=== PATIENT | male | born 1945 | race Two or more races ===

== ENCOUNTER 2018-10-13 08:07 | Outpatient (CLI) | payer OTHER | END 2018-10-13 08:20 | disposition home or self-care (01) | LOC: OFIC 805 08:07 | DX: J31.2 Chronic pharyngitis (principal); R49.0 Dysphonia; H61.23 Impacted cerumen, bilateral ==

== ENCOUNTER 2021-01-15 10:19 | Inpatient (IN) | payer OTHER ==
[~2021-01-15] VITALS: Ht 167.6 cm; Wt 86.2 kg
[2021-01-15] MEDS ORDERED: DIOVAN160 M1 PO (10:34)
--- NOTE | 2021-01-15 10:35 | NUR ---
SE RECIBE PACIENTE ALERTA Y ORIENTADO. PACIENTE REFIERE TENER DOLOR ABDOMINAL HACE 12 BROWN Y TENER MUCHO GASES.
--- NOTE | 2021-01-15 10:53 | NUR ---
SE ORIENTA PTE SOBRE EL TRATAMIENTO ORDENADO POR EL DR ANN PTE ALERTA Y CONCIENTE POR 3 SE REALIZAN MUESTRAS DE LABORATORIO Y SE ADMINISTRAN MEDICAMENTO LUIS ORDENADO
[2021-01-16] MEDS ORDERED: DIOVAN HCT 1601 EACH (14:16)
[2021-01-16] MEDS ORDERED: PANTOPRAZOLE SO40 MG (14:16)
[2021-01-16] MEDS ORDERED: LATANOPROST2.5 ML (14:16)
[2021-01-16] MEDS ORDERED: HYDROCHLOROTH12.5 MG (14:17)
[2021-01-16] MEDS ORDERED: MONTELUKAST SOD10 MG (14:17)
== END 2021-01-17 14:37 | disposition home or self-care (01) | DRG 315 ==
LOC: ER 10:19 → MEDI 20:34
PROVIDERS: ADMIT Internal Medicine; ATTEND Internal Medicine
PROC: 4A12X4Z Monitoring of Cardiac Electrical Activity, External Approach (ICD-10-PCS; principal; 2021-01-15)
PROC: B24BZZZ Ultrasonography of Heart with Aorta (ICD-10-PCS; 2021-01-15)
PROC: BW2110Z Computerized Tomography (CT Scan) of Abdomen and Pelvis using Low Osmolar Contrast, Unenhanced and Enhanced (ICD-10-PCS; 2021-01-15)
DX: I30.8 Other forms of acute pericarditis (principal); J90 Pleural effusion, not elsewhere classified; I31.3 Pericardial effusion (noninflammatory); R10.9 Unspecified abdominal pain